=== PATIENT | female | born 1955 | race Caucasian/White ===

== ENCOUNTER 2018-03-16 07:49 | Day surgery (SDC) ==
[2018-03-16] MEDS ORDERED: LIDOCAINE 1% 20 ML MDV ID STA (08:19)
[2018-03-16] MEDS ORDERED: BSS WITH EPINEPHRINE OP ONE (08:19)
[2018-03-16] MEDS ORDERED: BRIMONIDINE TARTRATE 0.2% OPTH SOL OP PRN (08:19)
[2018-03-16] MEDS ORDERED: LIDOCAINE 1%/PHENYLEPHRINE 1.5% BSS (SURGERY) INTRAOCULA ONE (08:19)
[2018-03-16] MEDS ORDERED: ZOFRAN 4 MG/2 ML IVP ONE (08:19)
[2018-03-16] MEDS ORDERED: DEX-MOXI-KETOR OPTH INJ 1/0.5/0.4 MG/ML IO ONE (08:19)
[2018-03-16] MEDS: BETADINE OPTH PREP OP PRN ×2 (08:20→08:58)
[2018-03-16] MEDS: TETRACAINE 0.5% UNIT-DOSE OP PRN ×2 (08:20→08:56)
[2018-03-16] MEDS: CYCLOGYL 2% OPTH OP PRN ×3 (08:21→08:31)
[2018-03-16 08:27] VITALS: TEMP 96.7
[2018-03-16] MEDS ORDERED: VERSED ONE (08:58)
[2018-03-16] MEDS ORDERED: SUBLIMAZE ONE (08:58)
[2018-03-21 08:54] VITALS: BP 128/64
== END 2018-03-16 09:50 | disposition home or self-care (01) ==
LOC: SURG 07:49
PROVIDERS: ATTEND Ophthalmology
DX: H52.201 Unspecified astigmatism, right eye (principal); H25.9 Unspecified age-related cataract

== ENCOUNTER 2018-04-05 07:25 | Day surgery (SDC) ==
[2018-04-05] MEDS ORDERED: ZOFRAN 4 MG/2 ML IVP ONE (07:46)
[2018-04-05] MEDS ORDERED: BRIMONIDINE TARTRATE 0.2% OPTH SOL OP PRN (07:46)
[2018-04-05] MEDS ORDERED: LIDOCAINE 1% 20 ML MDV ID STA (07:46)
[2018-04-05] MEDS: BETADINE OPTH PREP OP PRN ×2 (08:15→08:45)
[2018-04-05] MEDS: TETRACAINE 0.5% UNIT-DOSE OP PRN ×3 (08:15→09:01)
[2018-04-05] MEDS: CYCLOGYL 2% OPTH OP PRN ×3 (08:16→08:26)
[2018-04-05] MEDS ORDERED: DIPRIVAN 20 ML VIAL IVP ONE (08:47)
[2018-04-05] MEDS ORDERED: VERSED ONE (08:47)
[2018-04-05] MEDS ORDERED: SUBLIMAZE ONE (08:47)
[2018-04-05] MEDS: BSS WITH EPINEPHRINE OP ONE ×2 (08:51→09:01)
[2018-04-05] MEDS: LIDOCAINE 1%/PHENYLEPHRINE 1.5% BSS (SURGERY) INTRAOCULA ONE ×2 (08:52→09:01)
[2018-04-05] MEDS: DEX-MOXI-KETOR OPTH INJ 1/0.5/0.4 MG/ML IO ONE ×2 (08:52→09:01)
[2018-04-05 13:10] VITALS: BP 126/67
[2018-04-05 13:28] VITALS: TEMP 97.6
== END 2018-04-05 09:45 | disposition home or self-care (01) ==
LOC: SURG 07:25
PROVIDERS: ATTEND Ophthalmology
DX: H25.13 Age-related nuclear cataract, bilateral (principal)